=== PATIENT | female | born 1975 | race African-American/Black ===

== ENCOUNTER 2021-04-29 14:42 | Observation (INO) | payer BC ==
[2021-04-29 15:13] LABS: Absolute Lymphocytes (CBC) 1.4 K/uL (0.7-4.9); Basophils % 0.4 % (0-1.3); Hematocrit 26.4 % (36.0-45.0); Lymphocytes % 24.1 % (15.3-44.8); MPV 10.2 fL (7.6-11.3); RBC Red Blood Cell Count 3.03 M/uL (3.86-4.86)
[2021-04-29 15:26] LABS: Protime INR 1.28
[2021-04-29 15:49] LABS: ALT/SGPT 12 U/L (12-78); AST/SGOT 9 U/L (15-37); Albumin 1.9 g/dL (3.4-5.0); Alkaline Phosphatase 37 U/L (45-117); BUN Blood Urea Nitrogen 8 mg/dL (7-18); Bicarbonate 18 mmol/L (21-32); Bilirubin Direct < 0.1 mg/dL (0-0.2); Bilirubin Total 0.1 mg/dL (0.2-1.0); Creatine Phosphokinase 30 U/L (26-192); Glucose Level 67 mg/dL (74-106); Magnesium 1.3 mg/dL (1.8-2.4); Protein, Total 4.8 g/dL (6.4-8.2); Sodium Level 149 mmol/L (136-145); Troponin (Emerg Dept Use Only) < 0.02 ng/mL (0.0-0.045)
[2021-04-29 15:52] LABS: NT PRO-BNP < 5 pg/mL (<125)
[2021-04-29 15:54] LABS: Potassium 2.4 mmol/L (3.5-5.1)
--- NOTE | 2021-04-29 16:20 | EDPHYS ---
Physician Documentation [facility] Name: Cely Hernandez Age: 45 yrs Sex: Female : 1975 Arrival Date: 04/29/2021 Time: 14:49 Bed 27 Private MD: ED Physician Chan Baez HPI: 04/29 19:34 This 45 yrs old Black Female presents to ER via EMS with complaints of overheated, kb palpitations. 19:34 The patient presents with a history of heart racing. Context: The symptoms occur while kb working in the heat. Onset: The symptoms/episode began/occurred just prior to arrival. Duration: The patient or guardian reports a single episode. Modifying factors: The symptoms are aggravated by nothing. The symptoms are alleviated by sitting in cooled environment. Associated signs and symptoms: Pertinent positives: lightheadedness, nausea, near-syncope. Severity of symptoms: At their worst the symptoms were moderate in the emergency department the symptoms have improved. The patient has not experienced similar symptoms in the past. The patient has not recently seen a physician. 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 Reports her heart started racing, she had abd cramping, nausea and black spots in her vision. States symptoms started to resolve after getting in ambulance and cooling down. LIGHT BULB TESTER: 15:21 LMP 04/19/2021 kg Historical: - Allergies: 15:17 PENICILLINS; kg 15:17 Sulfa (Sulfonamide Antibiotics); kg - PMHx: 15:17 Migraines; Obesity; kg - Immunization history:: Adult Immunizations up to date. - Social history:: Smoking status: Patient denies any tobacco usage or history of. ROS: 19:33 Constitutional: Negative for fever, chills, and weight loss. kb 19:33 Abdomen/GI: Positive for nausea, abdominal cramps. 19:33 Neuro: Positive for near syncope, visual changes, weakness. 19:33 All other systems are negative. 19:34 Cardiovascular: Positive for palpitations, Negative for chest pain, edema, orthopnea. kb Exam: 15:05 Constitutional: This is a well developed, well nourished patient who is awake, alert, kb and in no acute distress. Head/Face: Normocephalic, atraumatic. ENT: Moist Mucous membranes Cardiovascular: Regular rate and rhythm with a normal S1 and S2. No gallops, murmurs, or rubs. No pulse deficits. Respiratory: Respirations even and unlabored. No increased work of breathing, no retractions or nasal flaring. Abdomen/GI: Soft, non-tender. No distention Skin: Warm, dry with normal turgor. Normal color. MS/ Extremity: Pulses equal, no cyanosis. Neurovascular intact. Full, normal range of motion. Neuro: Awake and alert, GCS 15, oriented to person, place, time, and situation. Moves all extremities. Normal gait. Psych: Awake, alert, with orientation to person, place and time. Behavior, mood, and affect are within normal limits. 15:05 ECG was reviewed by the Attending Physician. Vital Signs: 14:37 BP 123 / 88; Pulse 118; Resp 21; Temp 98.7(O); Pulse Ox 100% ; Weight 145.15 kg; Height kg 5 ft. 2 in. (157.48 cm); Pain 4/10; 15:00 BP 124 / 87; Pulse 108; Resp 20; Pulse Ox 100% on R/A; kg 16:00 BP 144 / 104; Pulse 92; Resp 20; Pulse Ox 99% on R/A; kg 16:30 BP 144 / 91; Pulse 89; Resp 20; Pulse Ox 100% on R/A; kg 17:30 BP 132 / 90; Pulse 86; Resp 20; Pulse Ox 100% on R/A; kg 18:00 BP 132 / 88; Pulse 84; Resp 20; Pulse Ox 100% on R/A; kg 18:30 BP 128 / 87; Pulse 81; Resp 20; Pulse Ox 100% on R/A; kg 19:00 BP 123 / 87; Pulse 72; Resp 20; Pulse Ox 100% on R/A; kg 19:30 BP 125 / 84; Pulse 77; Resp 20; Pulse Ox 100% on R/A; kg 23:03 BP 137 / 95; Pulse 76 LA; Resp 20; Pulse Ox 100% ; kg 14:37 Body Mass Index 58.53 (145.15 kg, 157.48 cm) kg MDM: 14:51 Patient medically screened. tomasa 15:05 Data reviewed: vital signs, nurses notes. Data interpreted: Pulse oximetry: on room air kb is 100 %. Interpretation: normal. 16:19 Counseling: I had a detailed discussion with the patient and/or guardian regarding: the kb historical points, exam findings, and any diagnostic results supporting the discharge/admit diagnosis, lab results, the need for further work-up and treatment in the hospital. Physician consultation: Neri Hendrix MD was contacted at 16:19, regarding admission, to the medical/surgical unit. patient's condition, and will see patient in ED. 04/29 14:51 Order name: Basic Metabolic Panel; Complete Time: 15:55 kb 04/29 14:51 Order name: CBC with Diff; Complete Time: 15:28 kb 04/29 14:51 Order name: LFT's; Complete Time: 15:55 kb 04/29 14:51 Order name: Magnesium; Complete Time: 15:55 kb 04/29 14:51 Order name: NT PRO-BNP; Complete Time: 15:55 kb 04/29 14:51 Order name: PT-INR; Complete Time: 15:28 kb 04/29 14:51 Order name: Troponin (emerg Dept Use Only); Complete Time: 15:55 kb 04/29 14:51 Order name: CPK; Complete Time: 15:55 kb 04/29 17:07 Order name: Ferritin; Complete Time: 18:32 EDMS 04/29 17:07 Order name: Haptoglobin EDMS 04/29 17:07 Order name: Lactic Dehydrogenase; Complete Time: 18:32 EDMS 04/29 17:07 Order name: Occult Blood EDMS 04/29 17:07 Order name: Retic Count; Complete Time: 18:32 EDMS 04/29 17:07 Order name: Transferrin Sat/Iron Binding; Complete Time: 18:32 EDMS 04/29 17:07 Order name: Type and Screen; Complete Time: 19:18 EDMS 04/29 17:13 Order name: Comprehensive Metabolic Panel EDMS 04/29 17:13 Order name: Comprehensive Metabolic Panel EDMS 04/29 17:13 Order name: Comprehensive Metabolic Panel EDMS 04/29 17:13 Order name: Comprehensive Metabolic Panel EDMS 04/29 17:13 Order name: Magnesium EDMS 04/29 17:13 Order name: Magnesium EDMS 04/29 17:13 Order name: Magnesium EDMS 04/29 17:13 Order name: Magnesium EDMS 04/29 17:16 Order name: T4 Free; Complete Time: 18:32 EDMS 04/29 17:16 Order name: Thyroid Stimulating Hormone; Complete Time: 18:32 EDMS 04/29 17:16 Order name: Phosphorus; Complete Time: 18:32 EDMS 04/29 17:17 Order name: Urinalysis EDMS 04/29 17:33 Order name: CBC without Diff EDMS 04/29 19:14 Order name: ABO/RH no charge; Complete Time: 19:18 EDMS 04/29 14:51 Order name: XRAY Chest (1 view); Complete Time: 16:38 kb 04/29 14:51 Order name: EKG; Complete Time: 14:52 kb 04/29 14:51 Order name: Cardiac monitoring; Complete Time: 15:27 kb 04/29 14:51 Order name: EKG - Nurse/Tech; Complete Time: 15:27 kb 04/29 14:51 Order name: IV Saline Lock; Complete Time: 15:27 kb 04/29 14:51 Order name: Labs collected and sent; Complete Time: 15:27 kb 04/29 14:51 Order name: O2 Per Protocol; Complete Time: 15:27 kb 04/29 14:51 Order name: O2 Sat Monitoring; Complete Time: 15:27 kb 04/29 16:12 Order name: CT Head Brain wo Cont; Complete Time: 17:31 kb 04/29 21:08 Order name: Urine Dipstick-Ancillary EDMS EC:05 Rate is 110 beats/min. Rhythm is regular. QRS [place] is Normal. KS interval is normal at kb 182 msec. QRS interval is normal at 84 msec. QT interval is normal at 336 msec. Administered Medications: 17:17 Drug: D5-NS with KCL 40 mEq/L 1000 ml Route: IV; Rate: 125 ml/hr; Site: right kg antecubital; Disposition: 04/30 07:17 Co-signature as Attending Physician, Chan Baez MD I agree with the assessment and matthieu plan of care. Disposition: 04/29/21 16:20 Hospitalization ordered by Neri Hendrix for Observation. Preliminary diagnosis are Dehydration, Hypernatremia, Hypocalcemia, Hypokalemia. - Bed requested for Telemetry/MedSurg (observation). - Status is Observation. kg - Condition is Stable. - Problem is new. - Symptoms are unchanged. Signatures: Dispatcher [employer] EDMS Mary Woodson, BOOT AND SHOE LABORER-C BOOT AND SHOE LABORER-Ckb Chan Baez MD MD cha Garcia, Cindy, RN RN cg Joan Oden, KAMLESH RN kg Corrections: (The following items were deleted from the chart) 04/29 17:07 17:07 Iron ordered. EDMS EDMS 19:34 19:33 Abdomen/GI: Positive for abdominal cramps, kb kb 22:08 16:20 Hospitalization Ordered by Neri Hendrix MD for Observation. Preliminary cg diagnosis is Dehydration; Hypernatremia; Hypocalcemia; Hypokalemia. Bed requested for Telemetry/MedSurg (observation). Status is Observation. Condition is Stable. Problem is new. Symptoms are unchanged. kb 04/30 00:02 04/29 22:08 04/29/2021 16:20 Hospitalization Ordered by Neri Hendrix MD for kg Observation. Preliminary diagnosis is Dehydration; Hypernatremia; Hypocalcemia; Hypokalemia. Bed requested for Telemetry/MedSurg (observation). Status is Observation. Condition is Stable. Problem is new. Symptoms are unchanged. cg
--- NOTE | 2021-04-29 16:20 | ER ---
Nurse's Notes [facility] Name: Cely Hernandez Age: 45 yrs Sex: Female : 1975 Arrival Date: 04/29/2021 Time: 14:49 Bed 27 Private MD: Diagnosis: Dehydration;Hypernatremia;Hypocalcemia;Hypokalemia Presentation: 04/29 14:37 Initial Sepsis Screen: Does the patient meet any 2 criteria? RR > 20 per min. HR > 90 kg bpm. Does the patient have a suspected source of infection? No. Patient's initial sepsis screen is negative. 14:40 Chief complaint: Patient states: Pt presents via [facility]. 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 It was really hot in there and I started seeing spot and getting nauseated and my heart was racing. I'm taking bee pollen diet pills and not sure if that's why I started feeling bad or if I just got too hot.". Coronavirus screen: Client denies travel out of the [place] in the last 14 days. At this time, unable to obtain information related to travel outside the [place] At this time, the client does not indicate any symptoms associated with coronavirus-19. Ebola Screen: Patient negative for fever greater than or equal to 101.5 degrees Fahrenheit, and additional compatible Ebola Virus Disease symptoms Patient denies exposure to infectious person. Patient denies travel to an Ebola-affected area in the 21 days before illness onset. 14:40 Method Of Arrival: EMS: [facility] kg 14:40 Risk Assessment: Do you want to hurt yourself or someone else? Patient reports no kg desire to harm self or others. Onset of symptoms was April 29, 2021 at 13:00. 14:40 Acuity: ERIC 4 kg 14:40 Acuity: ERIC 3 kg Triage Assessment: 15:18 General: Appears in no apparent distress. Behavior is calm, cooperative, appropriate kg for age, quiet. Pain: Complains of pain in abdomen Pain currently is 4 out of 10 on a pain scale. at worst was 4 out of 10 on a pain scale. level that patient reports is acceptable is 3 out of 10 on a pain scale. SWING GRINDER: 15:21 LMP 04/19/2021 kg Historical: - Allergies: 15:17 PENICILLINS; kg 15:17 Sulfa (Sulfonamide Antibiotics); kg - PMHx: 15:17 Migraines; Obesity; kg - Immunization history:: Adult Immunizations up to date. - Social history:: Smoking status: Patient denies any tobacco usage or history of. Screenin:18 Abuse screen: Denies threats or abuse. Denies injuries from another. Nutritional kg screening: No deficits noted. Tuberculosis screening: No symptoms or risk factors identified. Fall Risk None identified. No fall in past 12 months (0 pts). No secondary diagnosis (0 pts). IV access (20 points). Ambulatory Aid- Crutches/Cane/Walker (15 pts). Gait- Normal/Bed Rest/Wheelchair (0 pts) Mental Status- Oriented to own ability (0 pts). Total Faustin Fall Scale indicates No Risk (0-24 pts). Assessment: 15:19 General: Appears in no apparent distress. Behavior is calm, cooperative, appropriate kg for age, quiet. Pain: Complains of pain in abdomen. Neuro: No deficits noted. Level of Consciousness is awake, alert, obeys commands, Oriented to person, place, time, situation, Appropriate for age. Cardiovascular: Heart tones S1 S2 Capillary refill < 3 seconds Rhythm is sinus tachycardia. Respiratory: No deficits noted. Airway is patent Trachea midline Respiratory effort is even, unlabored, relaxed, Respiratory pattern is regular, symmetrical. GI: Abdomen is obese, Bowel sounds present X 4 quads. Reports nausea. : No deficits noted. EENT: No deficits noted. Derm: No deficits noted. Musculoskeletal: No deficits noted. Vital Signs: 14:37 BP 123 / 88; Pulse 118; Resp 21; Temp 98.7(O); Pulse Ox 100% ; Weight 145.15 kg; Height kg 5 ft. 2 in. (157.48 cm); Pain 4/10; 15:00 BP 124 / 87; Pulse 108; Resp 20; Pulse Ox 100% on R/A; kg 16:00 BP 144 / 104; Pulse 92; Resp 20; Pulse Ox 99% on R/A; kg 16:30 BP 144 / 91; Pulse 89; Resp 20; Pulse Ox 100% on R/A; kg 17:30 BP 132 / 90; Pulse 86; Resp 20; Pulse Ox 100% on R/A; kg 18:00 BP 132 / 88; Pulse 84; Resp 20; Pulse Ox 100% on R/A; kg 18:30 BP 128 / 87; Pulse 81; Resp 20; Pulse Ox 100% on R/A; kg 19:00 BP 123 / 87; Pulse 72; Resp 20; Pulse Ox 100% on R/A; kg 19:30 BP 125 / 84; Pulse 77; Resp 20; Pulse Ox 100% on R/A; kg 23:03 BP 137 / 95; Pulse 76 LA; Resp 20; Pulse Ox 100% ; kg 14:37 Body Mass Index 58.53 (145.15 kg, 157.48 cm) kg ED Course: 14:49 Patient arrived in ED. ds1 14:51 Mary Woodson FNP-C [facility]. kb 14:51 Chan Baez MD is Attending Physician. kb 15:08 Joan Oden, KAMLESH is Primary Nurse. kg 15:13 XRAY Chest (1 view) In Process Unspecified. EDMS 15:16 Triage completed. kg 15:20 Maintain EMS IV. Dressing intact. Good blood return noted. Site clean \\T\\ dry. Gauge \\T\\ kg site: 20 R AC double lumen.. 15:21 Arm band placed on right wrist. kg 15:21 Patient has correct armband on for positive identification. Bed in low position. Call kg light in reach. Side rails up X2. 15:27 CPK Sent. kg 16:20 Neri Hendrix MD is Hospitalizing Provider. kb 17:08 CT Head Brain wo Cont In Process Unspecified. EDMS 23:18 Report given to Report called to 2nd floor med surg nurse. kg 23:19 No provider procedures requiring assistance completed. Maintain EMS IV. kg Administered Medications: 17:17 Drug: D5-NS with KCL 40 mEq/L 1000 ml Route: IV; Rate: 125 ml/hr; Site: right kg antecubital; Outcome: 16:20 Decision to Hospitalize by Provider. kb 23:19 Admitted to Med/surg accompanied by nurse, via wheelchair, room 214, Report called to kg 2nf floor charging manipulator 23:20 Condition: improved kg 23:20 Instructed on the need for admit. 04/30 00:02 Patient left the ED. kg Signatures: Dispatcher [employer] EDMS Mary Woodson FNP-C ELECTRONICS MECHANIC APPRENTICE-Ckb Kassie Perez ds1 Joan Oden, RN RN kg
--- NOTE | 2021-04-29 16:28 | RAD REPORT ---
EXAM DESCRIPTION: RAD - Chest Single View - 04/29/2021 3:13 pm CLINICAL HISTORY: PALPITATIONS COMPARISON: None TECHNIQUE: AP portable chest image was obtained 04/29/2021 3:13 pm . FINDINGS: Lung volumes are low. Large body habitus and under penetrated technique further limit the examination. No peripheral mass or consolidation. No failure or volume overload suspected. Heart and vasculature a re normal. No measurable pleural effusion and no pneumothorax. No acute bony abnormality seen. No acu te aortic findings suspected. IMPRESSION: Limited study without acute cardiopulmonary finding.
[2021-04-29] MEDS: D5 0.9 NS 1,000 ML with POTASSIUM CL 40 MEQ IV SCH ×2 (17:00)
[2021-04-29] MEDS ORDERED: Magnesium Sulfate 2gm IVPB 2 G/50 ML BAG IV ONE ×2 (17:09→19:43)
--- NOTE | 2021-04-29 17:25 | P.HP ---
Certification for Inpatient Patient admitted to: Observation With expected LOS: <2 Midnights Practitioner: I am a practitioner with admitting privileges, knowledge of patient current condition, hospital course, and medical plan of care. Services: Services provided to patient in accordance with Admission requirements found in Title 42 Section 412.3 of the Code of Federal Regulations Patient History Date of Service: 04/29/21 Reason for admission: Heat exhaustion, anemia History of Present Illness: 45yo F, PMH: morbid obesity, HTN Presents to ED after not feeling well with seeing black spots, nausea, "stomach knots", general weakness, fatigue. 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 Temperature was in the 90s outside and reports it felt much warmer inside. She drank 2x 20oz bottles of water today. She reports around 11am, she began to feel overheated, and this sensation continued to get worse. Despite feeling overheated she denies sweating profusely. She reports fatigue over the last few months. No recent bloodwork. Has heavy periods, lasting ~7-8 days, wears depends at times. Denies black stools, no bleeding that she has noticed. She has been taking OTC diet pills for the last 1-2 months. She reports increased heartburn symptoms over the last few months as well, takes rolaids more often - half the days in a week now. ED workup revealed anemia, HgB: 8.0, denies h/o anemia. significant hypokalemia, hypomagnesemia, mild hypernatremia, mild hypocalcemia (Corrected for albumin), hypoalbuminemia, mild acidosis, hyperchloremia Currently reports she is feeling better, no longer seeing black spots, vision is back to normal. Home medications list reviewed: Yes - Past Medical/Surgical History -: Hypertension -: Morbid obesity -: Tubal ligation - Family History Father -: Heart disease Mother -: Heart disease - Social History Smoking Status: Never smoker Alcohol use: No CD- Drugs: No Caffeine use: Yes Place of Residence: Home Review of Systems 10-point ROS is otherwise unremarkable Physical Examination - Physical Exam General: Alert, In no apparent distress, Oriented x3, Obese HEENT: PERRLA, Other (dry mucous membranes), EOMI, Sclerae nonicteric Neck: Supple Respiratory: Clear to auscultation bilaterally, Normal air movement Cardiovascular: No edema, Regular rate/rhythm, Normal S1 S2, No murmurs Gastrointestinal: Soft and benign, Non-distended, Tenderness (Epigastrium) Musculoskeletal: No erythema, No tenderness Integumentary: No rashes, No breakdown Neurological: Normal speech, Normal strength at 5/5 x4 extr, Cranial nerves 3-12 intact, Normal affect - Studies Laboratory Data (last 24 hrs) 04/29/21 15:02: PT 14.7 H, INR 1.28 04/29/21 15:02: WBC 5.80, Hgb 8.3 L, Hct 26.4 L, Plt Count 202 04/29/21 15:02: Sodium 149 H, Potassium 2.4 L*, BUN 8, Creatinine 0.34 L, Glucose 67 L, Magnesium 1.3 L*, Total Bilirubin 0.1 L, AST 9 L, ALT 12, Alkaline Phosphatase 37 L Assessment and Plan - Advance Directives Does patient have a Living Will: No Does patient have a Durable POA for Healthcare: No Physician Review Additional Text: Vision changes, nausea Heat exhaustion vs heat stroke Electrolyte abnormalities (hypokalemia, hypomagnesemia, hyperchloremia, hypernatremia, hypocalcemia) Normocytic Anemia, unclear acute vs chronic Hypertension Morbid obesity -patient appears dry on exam, started on IVF in ED -unclear etiology of electrolyte abnormalities, patient has been taking OTC diet pills for last 1.5 months, and was overheated / dehydrated -vision changes likely from being overheated / dehydrated -CT brain ordered -continue correction of electrolytes, BMP q4h until tomorrow -pt denies h/o anemia, does have heavy menstrual periods, denies dark/black stool, but does have h/o worsening acid reflux symptoms and epigastric tenderness -concern for UGI bleed / gastric ulcer -start IV protonix BID, carafate, stool occult ordered -anemia workup sent as well -type and screen -consult GI if occult + and rest of workup negative -monitor on telemetry VTE: SCDs Code: full Dispo: anticipate dc home in 24-48hrs Time Spent Managing Pts Care (In Minutes): 60
--- NOTE | 2021-04-29 17:28 | RAD REPORT ---
EXAM DESCRIPTION: CT - Head Brain Wo Cont - 04/29/2021 5:08 pm CLINICAL HISTORY: vision changes, headache history COMPARISON: No comparisons TECHNIQUE: Axial 5 mm thick images of the head were obtained without IV contrast. All CT scans are performed using dose optimization technique as appropriate and may include automated exposure control or mA/KV adjustment according to patient size. FINDINGS: No intracranial hemorrhage, mass, edema or shift of mid-line structures. No acute infarcti on changes seen. No abnormal extra-axial fluid collections. Ventricles are normal. Mastoid air cells and visualized portions of the paranasal sinuses are clear. No acute bony findings. IMPRESSION: Negative non-contrast CT head examination.
[2021-04-29] MEDS ORDERED: POTASSIUM CL SA 10 MEQ TAB PO ONE ×2 (18:00→19:43)
[2021-04-29] MEDS ORDERED: CALCIUM GLUC 10% INJ 4.65 MEQ in NA CHLORIDE 0.9% 100 ML IV ONE (18:00)
[2021-04-29 18:28] LABS: RBC Red Blood Cell Count 4.25 M/uL (3.86-4.86)
[2021-04-29 18:29] LABS: Ferritin 11.2 ng/mL (8-388); Phosphorus 3.1 mg/dL (2.5-4.9); Thyroid Stimulating Hormone 1.59 uIU/mL (0.360-3.740)
[2021-04-29 19:38] VITALS: BMI 58.5
[2021-04-29 21:07] LABS: Urine Blood Negative (Negative); Urine Glucose Negative (Negative); Urine Protein Negative (Negative); Urine Specific Gravity >=1.030 (1.005-1.030)
[2021-04-29 21:11] LABS: Hematocrit 35.4 % (36.0-45.0); MPV 9.9 fL (7.6-11.3); RBC Red Blood Cell Count 4.17 M/uL (3.86-4.86)
[2021-04-29 21:27] LABS: ALT/SGPT 19 U/L (12-78); AST/SGOT 7 U/L (15-37); Albumin 3.2 g/dL (3.4-5.0); Alkaline Phosphatase 60 U/L (45-117); BUN Blood Urea Nitrogen 11 mg/dL (7-18); Bicarbonate 25 mmol/L (21-32); Bilirubin Total 0.2 mg/dL (0.2-1.0); Glucose Level 97 mg/dL (74-106); Magnesium 2.8 mg/dL (1.8-2.4); Potassium 3.8 mmol/L (3.5-5.1); Protein, Total 7.6 g/dL (6.4-8.2); Sodium Level 141 mmol/L (136-145)
[2021-04-29] MEDS ORDERED: SODIUM CHLORIDE 0.9% 10ML INJ IV PRN (23:59)
[2021-04-30 00:36] LABS: ALT/SGPT 20 U/L (12-78); AST/SGOT 8 U/L (15-37); Albumin 3.3 g/dL (3.4-5.0); Alkaline Phosphatase 61 U/L (45-117); BUN Blood Urea Nitrogen 11 mg/dL (7-18); Bicarbonate 26 mmol/L (21-32); Bilirubin Total 0.2 mg/dL (0.2-1.0); Glucose Level 92 mg/dL (74-106); Magnesium 2.5 mg/dL (1.8-2.4); Potassium 4.1 mmol/L (3.5-5.1); Protein, Total 8.1 g/dL (6.4-8.2); Sodium Level 141 mmol/L (136-145)
[2021-04-30] MEDS: SUCRALFATE 1 GM TABLET PO SCH ×3 (00:44→12:22)
[2021-04-30] MEDS: PANTOPRAZOLE 40 MG INJ IVP SCH ×2 (01:11→08:00)
[2021-04-30] MEDS: D5 0.9 NS 1,000 ML with POTASSIUM CL 40 MEQ IV SCH ×4 (01:12→09:20)
[2021-04-30 03:36] LABS: Absolute Lymphocytes (CBC) 2.9 K/uL (0.7-4.9); Basophils % 0.5 % (0-1.3); Hematocrit 34.3 % (36.0-45.0); Lymphocytes % 35.7 % (15.3-44.8); RBC Red Blood Cell Count 4.01 M/uL (3.86-4.86)
[2021-04-30 03:45] LABS: ALT/SGPT 18 U/L (12-78); AST/SGOT 7 U/L (15-37); Alkaline Phosphatase 55 U/L (45-117); BUN Blood Urea Nitrogen 10 mg/dL (7-18); Bicarbonate 25 mmol/L (21-32); Bilirubin Total 0.3 mg/dL (0.2-1.0); Glucose Level 91 mg/dL (74-106); Magnesium 2.3 mg/dL (1.8-2.4); Potassium 4.2 mmol/L (3.5-5.1); Protein, Total 7.3 g/dL (6.4-8.2); Sodium Level 142 mmol/L (136-145)
--- NOTE | 2021-04-30 10:28 | EKG ---
Test Date: 2021-04-29 Test Time: 14:56:13 Executive Advisor: JESSIKA MEASUREMENT RESULTS: Intervals: Rate: 110 NH: 182 QRSD: 84 QT: 336 QTc: 454 [place]: P: 29 NH: 182 QRS: 69 T: 23 INTERPRETIVE STATEMENTS: Sinus tachycardia Possible Left atrial enlargement Cannot rule out Anterior infarct, age undetermined Abnormal ECG No previous ECG available for comparison Electronically Signed On 04-30-21 10:25:49 CDT by Ric Washington
[2021-04-30 11:56] VITALS: BP 150/85; TEMP 97.7
[2021-04-30 13:02] VITALS: O2SAT 100
--- NOTE | 2021-04-30 14:25 | P.DS ---
Admission Date: 04/29/21 Discharge Date: 04/30/21 Disposition: ROUTINE DISCHARGE Discharge Condition: FAIR Reason for Admission: Heat exhaustion, anemia Consultations: None - Problems (1) Heat exhaustion Status: Acute (2) Chronic anemia Status: Acute (3) Morbid obesity Status: Acute Brief History of Present Illness: 45-year-old woman with a history of hypertension, morbid obesity presented to the emergency department after the feeling of nausea, generalized weakness, fatigue and seeing black spots. Patient reports working in the heat. Patient is on propranolol for migraine headaches and over the counter appetite suppressant. Workup in the emergency department revealed hemoglobin of 8, electrolyte abnormalities including hypokalemia hypomagnesemia and hypocalcemia. Heat exhaustion was suspected, patient hospitalized for further management. Hospital Course: Patient placed under observation on the medical floor. She was hydrated with IV fluid. The electrolyte abnormalities resolved. Patient for better and then became asymptomatic. Hemoglobin checked again was 11. Stool for occult blood negative. Patient's symptoms resolved and deemed stable for discharge. Vital Signs/Physical Exam: Temp Pulse Resp BP Pulse Ox 97.7 F 80 16 150/85 H 100 04/30/21 11:55 04/30/21 11:55 04/30/21 11:55 04/30/21 11:55 04/30/21 11:55 General: Alert, In no apparent distress, Oriented x3 HEENT: Atraumatic, PERRLA, Mucous membr. moist/pink, EOMI, Sclerae nonicteric Neck: Supple, JVD not distended Respiratory: Clear to auscultation bilaterally, Normal air movement Cardiovascular: No edema, Regular rate/rhythm, Normal S1 S2 Gastrointestinal: Normal bowel sounds, Soft and benign, Non-distended, No tenderness Musculoskeletal: No swelling, No tenderness Integumentary: No rashes, No erythema Neurological: Normal speech, Normal strength at 5/5 x4 extr, Cranial nerves 3-12 intact Laboratory Data at Discharge: WBC 8.20 K/uL (4.3-10.9) D 04/30/21 03:13 Hgb 11.3 g/dL (12.0-15.0) L 04/30/21 03:13 Hct 34.3 % (36.0-45.0) L 04/30/21 03:13 Plt Count 230 K/uL (152-406) 04/30/21 03:13 PT 14.7 SECONDS (9.5-12.5) H 04/29/21 15:02 INR 1.28 04/29/21 15:02 Sodium 142 mmol/L (136-145) 04/30/21 03:13 Potassium 4.2 mmol/L (3.5-5.1) 04/30/21 03:13 BUN 10 mg/dL (7-18) 04/30/21 03:13 Creatinine 0.73 mg/dL (0.55-1.3) 04/30/21 03:13 Glucose 91 mg/dL (74-106) 04/30/21 03:13 Phosphorus 3.0 mg/dL (2.5-4.9) 04/30/21 03:13 Magnesium 2.3 mg/dL (1.8-2.4) 04/30/21 03:13 Total Bilirubin 0.3 mg/dL (0.2-1.0) 04/30/21 03:13 AST 7 U/L (15-37) L 04/30/21 03:13 ALT 18 U/L (12-78) 04/30/21 03:13 Alkaline Phosphatase 55 U/L (45-117) 04/30/21 03:13 Home Medications: Propranolol [Inderal*] 20 mg PO DAILY 04/30/21 Physician Discharge Instructions: PROBLEM: Heat exhaustion, anemia GOAL: Clear understanding of disease process INSTRUCTIONS: Diet: Regular Activity: As tolerated If you have any questions regarding your stay call [phone] If your symptoms worsen call 911 or go to the ED. Avoid working in the heat. Stay hydrated. Diet: Regular Activity: Ad faina Followup: NONE,NONE [Primary Care Provider] -
== END 2021-04-30 15:44 | disposition home or self-care (01) ==
LOC: ER 14:42 → ERHOLD 17:41 → 2ND 23:21
PROVIDERS: ADMIT Hospitalist; ATTEND Internal Medicine
DX: T67.5XXA Heat exhaustion, unspecified, initial encounter (principal); D64.9 Anemia, unspecified; E66.01 Morbid (severe) obesity due to excess calories; I10 Essential (primary) hypertension; E87.6 Hypokalemia; E83.42 Hypomagnesemia; E83.51 Hypocalcemia; E87.0 Hyperosmolality and hypernatremia; Z68.43 Body mass index [BMI] 50.0-59.9, adult
CPT/HCPCS: 36415; 70450; 71045; 80048; 80053; 80076; 81003; 82274; 82550; 82728; 82947; 83010; 83540; 83615; 83735; 83880; 84100; 84439; 84443; 84466; 84484; 85025; 85027; 85044; 85610; 86850; 86900; 86901; 93005; 94760; 99285; C9113; G0378; J0610; J3475; J3480; J7042